=== PATIENT | male | born 1960 | race Caucasian/White ===

== ENCOUNTER 2017-11-07 00:31 | Inpatient (IN) | payer BC ==
[~2017-11-07] VITALS: Ht 182.9 cm; Wt 101.6 kg
[2017-11-07] VITALS (461 sets, daily range): BP systolic 129–138; BP diastolic 70–91; PULSE 57–68; TEMP 98.2–98.3; O2SAT 95–100
[2017-11-07] MEDS ORDERED: PRILOSEC 20MG20 MG PO (00:42)
[2017-11-07] MEDS ORDERED: LIPITOR20 MG PO (00:42)
[2017-11-07] MEDS ORDERED: TENORMIN 5050 MG/TAB PO (00:43)
[2017-11-07 00:51] LABS: BASO # 0.1 (0.0-0.2); BASO % 0.7 % (0.0-2.0); EOS # 0.4 (0.0-0.7); EOS % 4.8 % (0-4.0); GRAN # 3.6 (1.4-6.5); GRAN % 49.9 % (42.2-75.2); HEMATOCRIT 48.4 % (42.0-52.0); HEMOGLOBIN 17.2 g/dl (13.5-18.0); LYMPH # 2.4 (1.2-3.4); LYMPH % 32.9 % (20.0-51.0); MEAN CELL VOLUME 87 fl (80.0-100.0); MEAN CORPUSCULAR HEMOGLOBIN 31 pg (27.0-31.0); MEAN CORPUSCULAR HGB CONC 36 g/dl (33.0-37.0); MEAN PLATELET VOLUME 9.9 fl (7.4-10.4); MONO # 0.8 (0.1-0.6); MONO % 11.6 % (1.7-9.3); PLATELET COUNT 242 K/mm3 (130-400); RED BLOOD COUNT 5.56 M/mm3 (4.20-5.60); REDCELL DISTRIBUTION WIDTH-CV 11.9 % (11.5-14.5)
[2017-11-07 00:58] LABS: ALANINE AMINOTRANSFERASE 37 U/L (21-72); ALBUMIN 4.3 gm/dL (3.5-5.0); ALKALINE PHOSPHATASE 91 U/L (50-136); ANION GAP 11 mmol/L (7-16); AST,SGOT 30 U/L (15-37); BILIRUBIN,TOTAL 0.8 mg/dL (0.0-1.0); BLOOD UREA NITROGEN 16 mg/dL (9-20); CARBON DIOXIDE 27 mmol/L (22-30); CHLORIDE 101 mmol/L (98-107); CREATININE, serum 1.03 mg/dL (0.66-1.25); GLUCOSE 255 mg/dL (74-106); INR 1.1 (0.8-3.0); PARTIAL THROMBOPLASTIN TIME 31.2 SECONDS (26.0-37.0); POTASSIUM 3.8 mmol/L (3.4-5.0); PROTHROMBIN TIME 12.5 SECONDS (9.7-12.8); SODIUM 139 mmol/L (137-145); TOTAL PROTEIN 7.2 gm/dL (6.4-8.2)
[2017-11-07 01:13] LABS: TROPONIN-I < 0.012 ng/mL (0.000-0.034)
[2017-11-07] MEDS ORDERED: NOVOLOG 100U100 U/M1 SQ ×4 (03:40→03:41)
[2017-11-07] MEDS ORDERED: NOVOLIN N100 U/ML SQ ×2 (03:40→03:42)
[2017-11-07 07:47] LABS: CHOLESTEROL 113 mg/dL (120-200); CHOLESTEROL RISK RATIO 3.7; HDL CHOLESTEROL 30 mg/dL; LDL CHOLESTEROL 66 mg/dL; TRIGLYCERIDE 86 mg/dL
[2017-11-07 08:05] LABS: TROPONIN-I 6 HR POST INITIAL < 0.012 ng/mL (0.000-0.034)
== END 2017-11-07 15:47 | disposition home or self-care (01) | DRG 310 ==
LOC: COL.ER 00:31 → ICU 02:19 → MEDICAL 12:00 → ICU 12:58 → MEDICAL 15:47
PROVIDERS: Emergency Medicine; Nurse Practitioner
DX: I48.91 Unspecified atrial fibrillation (principal); E10.9 Type 1 diabetes mellitus without complications; Z79.4 Long term (current) use of insulin; I10 Essential (primary) hypertension; E78.5 Hyperlipidemia, unspecified
CPT/HCPCS: 99222-AI; J1650; J1815; J3480; J7030; J7050